=== PATIENT | male | born 1970 | race Native Hawaiian/Other Pacific Islander ===

== ENCOUNTER 2016-06-26 17:05 | Outpatient (CLI) | payer OTHER ==
[~2016-06-26 17:05] MED LIST: ALPR0.5T24 PO; BUT/APAP/CA1 PO; GABA300C2 PO; HYDR-2748 PO; PRED20TA27 PO; SOMA350 MG PO; TIZA4TAB5 PO
== END 2016-06-26 17:07 | disposition short-term general hospital (02) ==
LOC: AMB 17:05
DX: S01.21XA Laceration without foreign body of nose, initial encounter (principal); S01.112A Laceration without foreign body of left eyelid and periocular area, initial encounter; S01.111A Laceration without foreign body of right eyelid and periocular area, initial encounter; M54.89 Other dorsalgia; V44.6XXA Car passenger injured in collision with heavy transport vehicle or bus in traffic accident, initial encounter; Y92.488 Other paved roadways as the place of occurrence of the external cause
CPT/HCPCS: A0425; A0427

== ENCOUNTER 2016-06-26 17:08 | Emergency (ER) | payer OTHER ==
[~2016-06-26] VITALS: Ht 177.8 cm; Wt 66.2 kg
[2016-06-26 17:58] LABS: PLATELET COUNT 268 K/uL (142-355)
[2016-06-26 18:14] LABS: POTASSIUM 4.2 mmol/L (3.6-5.2); SODIUM 134 mmol/L (136-145)
[2016-06-26 23:35] VITALS: BP 115/81; TEMP 98
== END 2016-06-26 23:35 | disposition home or self-care (01) ==
LOC: ED 17:08
PROVIDERS: Emergency Medicine
PROC: 09QKXZZ Repair Nasal Mucosa and Soft Tissue, External Approach (ICD-10-PCS; principal; 2016-06-26)
PROC: 08QPXZZ Repair Left Upper Eyelid, External Approach (ICD-10-PCS; 2016-06-26)
PROC: 0JQ10ZZ Repair Face Subcutaneous Tissue and Fascia, Open Approach (ICD-10-PCS; 2016-06-26)
DX: S00.83XA Contusion of other part of head, initial encounter (principal); S01.111A Laceration without foreign body of right eyelid and periocular area, initial encounter; S01.112A Laceration without foreign body of left eyelid and periocular area, initial encounter; S01.21XA Laceration without foreign body of nose, initial encounter; V44.6XXA Car passenger injured in collision with heavy transport vehicle or bus in traffic accident, initial encounter; R10.9 Unspecified abdominal pain
CPT/HCPCS: 36415; 80053; 80307; 80320; 81000; 82550; 84484; 85027; 90715; 93005; 96360; 96372; 99285; G0479; J2405

== ENCOUNTER 2016-09-12 14:24 | Outpatient (CLI) | payer OTHER ==
[2016-09-12 14:54] LABS: PLATELET COUNT 237 K/uL (142-355)
[2016-09-12 15:19] LABS: POTASSIUM 5.4 mmol/L (3.6-5.2)
== END 2016-09-12 19:09 | disposition home or self-care (01) ==
LOC: LAB 14:24
PROVIDERS: Family Medicine
DX: F41.8 Other specified anxiety disorders (principal); I10 Essential (primary) hypertension; I25.10 Atherosclerotic heart disease of native coronary artery without angina pectoris; G47.09 Other insomnia; E55.9 Vitamin D deficiency, unspecified
CPT/HCPCS: 80053; 80061; 82306; 83735; 84439; 84443; 84550; 85027

== ENCOUNTER 2016-09-29 11:42 | Outpatient (CLI) | payer OTHER | END 2016-09-29 13:00 | disposition home or self-care (01) | LOC: US 11:42 | DX: R10.2 Pelvic and perineal pain (principal) ==

== ENCOUNTER 2016-10-08 08:19 | Outpatient (CLI) | payer OTHER | END 2016-10-08 09:40 | disposition home or self-care (01) | LOC: CT 08:19 | DX: R10.2 Pelvic and perineal pain (principal); Z85.528 Personal history of other malignant neoplasm of kidney; Z90.5 Acquired absence of kidney | CPT/HCPCS: 36415; 82565; 84520; Q9963 ==

== ENCOUNTER 2016-12-30 13:16 | Outpatient (CLI) | payer OTHER ==
[2016-12-30 14:16] LABS: POTASSIUM 5.2 mmol/L (3.6-5.2); SODIUM 135 mmol/L (136-145)
[2016-12-30 14:19] LABS: PLATELET COUNT 308 K/uL (142-355)
== END 2016-12-30 14:20 | disposition home or self-care (01) ==
LOC: LAB 13:16
PROVIDERS: Family Medicine
DX: I10 Essential (primary) hypertension (principal); E78.4 Other hyperlipidemia; E55.9 Vitamin D deficiency, unspecified; M54.2 Cervicalgia; I25.10 Atherosclerotic heart disease of native coronary artery without angina pectoris
CPT/HCPCS: 80053; 80061; 82306; 83735; 84153; 84439; 84443; 84550; 85027

== ENCOUNTER 2017-04-10 08:01 | Outpatient (CLI) | payer OTHER | END 2017-04-10 21:48 | disposition home or self-care (01) | LOC: RAD 08:01 | DX: M25.551 Pain in right hip (principal) ==

== ENCOUNTER 2019-06-09 06:00 | Emergency (ER) | payer OTHER ==
[~2019-06-09] VITALS: Ht 177.8 cm; Wt 72.6 kg
[2019-06-09 06:00] VITALS: TEMP 98.1
[2019-06-09 07:11] VITALS: BP 133/88
== END 2019-06-09 07:11 | disposition home or self-care (01) ==
LOC: ED 06:00
DX: S39.012A Strain of muscle, fascia and tendon of lower back, initial encounter (principal); M54.5 Low back pain; G89.29 Other chronic pain; W18.39XA Other fall on same level, initial encounter; Y92.89 Other specified places as the place of occurrence of the external cause
CPT/HCPCS: 96372; 99283; J1885

== ENCOUNTER 2020-09-24 09:48 | Emergency (ER) | payer OTHER ==
[~2020-09-24] VITALS: Ht 177.8 cm; Wt 76.2 kg
[2020-09-24 09:48] VITALS: TEMP 98
[2020-09-24 10:34] LABS: POTASSIUM 4.6 mmol/L (3.6-5.2)
[2020-09-24 10:35] LABS: PLATELET COUNT 256 K/uL (142-355)
[2020-09-24 12:16] VITALS: BP 136/81
== END 2020-09-24 12:16 | disposition home or self-care (01) ==
LOC: ED 09:48
PROVIDERS: Emergency Medicine Emergency Medical Services
DX: S00.83XA Contusion of other part of head, initial encounter (principal); S16.1XXA Strain of muscle, fascia and tendon at neck level, initial encounter; M25.511 Pain in right shoulder; W01.198A Fall on same level from slipping, tripping and stumbling with subsequent striking against other object, initial encounter; Y92.89 Other specified places as the place of occurrence of the external cause
CPT/HCPCS: 80053; 80307; 81000; 83735; 85027; 85610; 93005; 96360; 96365; 96375; 99284; J0696; J2270; J2405

== ENCOUNTER 2021-03-09 08:56 | Emergency (ER) | payer OTHER ==
[~2021-03-09] VITALS: Ht 177.8 cm; Wt 72.6 kg
[2021-03-09 09:00] VITALS: TEMP 98.2
[2021-03-09] MEDS ORDERED: CLOP75TA2 PO (09:12)
[2021-03-09] MEDS ORDERED: GRALISE600 MG PO (09:12)
[2021-03-09] MEDS ORDERED: LIPITOR40 MG PO (09:12)
[2021-03-09] MEDS ORDERED: XARELTO2.5 MG PO (09:13)
[2021-03-09] MEDS ORDERED: CARV3.12 PO (09:13)
[2021-03-09] MEDS ORDERED: PANTOPRAZOLE 40MG TA PO (09:13)
[2021-03-09] MEDS ORDERED: IBU800 MG PO (09:14)
[2021-03-09] MEDS ORDERED: AMLODIPINE BESYLATE PO (09:14)
[2021-03-09] MEDS ORDERED: OXYCODONE HYDRO20 M1 PO (09:14)
[2021-03-09 09:45] VITALS: BP 139/88
== END 2021-03-09 09:56 | disposition home or self-care (01) ==
LOC: ED 08:56
DX: L98.8 Other specified disorders of the skin and subcutaneous tissue (principal); I10 Essential (primary) hypertension; M54.59 Other low back pain; G89.29 Other chronic pain; F41.8 Other specified anxiety disorders; F17.210 Nicotine dependence, cigarettes, uncomplicated
CPT/HCPCS: 96372; 99283; J0696; J1885

== ENCOUNTER 2022-04-04 13:45 | Emergency (ER) | payer OTHER ==
[~2022-04-04] VITALS: Ht 175.3 cm; Wt 65.8 kg
[~2022-04-04 13:45] MED LIST changes: +AMLODIPINE BESYLATE PO; +CARV3.12 PO; +CLOP75TA2 PO; +GRALISE600 MG PO; +IBU800 MG PO; +LIPITOR40 MG PO; +OXYCODONE HYDRO20 M1 PO; +PANTOPRAZOLE 40MG TA PO; +XARELTO2.5 MG PO
[2022-04-04 13:53] VITALS: TEMP 97.9
[2022-04-04 14:53] LABS: PLATELET COUNT 285 K/uL (142-355)
[2022-04-04 15:19] LABS: POTASSIUM 3.7 mmol/L (3.6-5.2)
[2022-04-04 17:12] VITALS: BP 129/66
== END 2022-04-04 17:12 | disposition home or self-care (01) ==
LOC: ED 13:45
PROVIDERS: Emergency Medicine
DX: M54.59 Other low back pain (principal)
CPT/HCPCS: 80053; 81002; 85027; 87502; 96372; 99283; J1885; J2405